=== PATIENT | female | born 1970 ===

== ENCOUNTER 2023-04-03 09:46 | Outpatient (CLI) | payer OTHER | END 2023-04-03 09:56 | disposition home or self-care (01) | LOC: RAD 09:46 | DX: M77.41 Metatarsalgia, right foot (principal); M77.42 Metatarsalgia, left foot; G57.63 Lesion of plantar nerve, bilateral lower limbs ==

== ENCOUNTER 2023-04-23 08:39 | Outpatient (CLI) | payer OTHER | END 2023-04-23 09:04 | disposition home or self-care (01) | LOC: MAMO-SONO 08:39 | PROVIDERS: ATTEND Obstetrics & Gynecology | DX: Z12.31 Encounter for screening mammogram for malignant neoplasm of breast (principal); N60.11 Diffuse cystic mastopathy of right breast; N60.12 Diffuse cystic mastopathy of left breast; M25.551 Pain in right hip ==

== ENCOUNTER 2023-06-07 10:57 | Outpatient (CLI) | payer OTHER ==
[2023-06-07 12:48] LABS: PHOSPHOKINASE CREATININE 60 U/L (26-192); T4 TOTAL 8.08 UG/DL (4.8-13.9)
[2023-06-07 12:49] LABS: C-REACTIVE PROTEIN < 0.29 MG/DL (0.00-0.29)
== END 2023-06-07 11:00 | disposition home or self-care (01) ==
LOC: LAB 10:57
DX: M35.9 Systemic involvement of connective tissue, unspecified (principal); M32.9 Systemic lupus erythematosus, unspecified; M45.9 Ankylosing spondylitis of unspecified sites in spine; R79.82 Elevated C-reactive protein (CRP); M06.9 Rheumatoid arthritis, unspecified; E06.3 Autoimmune thyroiditis; M35.00 Sjogren syndrome, unspecified; E55.9 Vitamin D deficiency, unspecified; E07.9 Disorder of thyroid, unspecified; M46.90 Unspecified inflammatory spondylopathy, site unspecified

== ENCOUNTER 2024-09-06 16:10 | Outpatient (CLI) | payer OTHER | END 2024-09-06 16:17 | disposition home or self-care (01) | LOC: RAD 16:10 | DX: M79.642 Pain in left hand (principal) ==

== ENCOUNTER 2024-09-15 14:38 | Outpatient (CLI) | payer OTHER | END 2024-09-15 14:46 | disposition home or self-care (01) | LOC: MAMO-SONO 14:38 | DX: N63 Unspecified lump in breast (principal) ==

== ENCOUNTER 2024-11-15 13:26 | Outpatient (CLI) | payer OTHER | END 2024-11-15 13:27 | disposition home or self-care (01) | LOC: NUCLEAR 13:26 | DX: M81.0 Age-related osteoporosis without current pathological fracture (principal) ==

== ENCOUNTER → 2024-12-06 07:45 | Outpatient (CLI) | payer OTHER ==
[2024-12-06 09:02] LABS: HEMATOCRIT 41.1 % (36.0-45.00); MEAN CELL VOLUME 93.3 fL (80.00-100.00); MEAN CORPUSCULAR HEMOGLOBIN 31.8 pg (27.00-32.0); MEAN CORPUSCULAR HGB CONC 34.1 g/dl (32.0-36.0); PLATELET COUNT 248 K/uL (150-450); RED BLOOD COUNT 4.41 M/uL (4.00-6.00); RED CELL DISTRIBUTION WIDTH 13.2 % (11.5-14.5)
[2024-12-06 09:18] LABS: PH,URINE 7.5 (5.0-8.0); URINE APPEARANCE Turbid; URINE BILIRRUBIN Negative (NEGATIVE); URINE BLOOD Negative; URINE COLOR Yellow; URINE GLUCOSE Negative (NEGATIVE); URINE KETONE Negative (NEGATIVE); URINE LEUKOCYTE Small; URINE NITRATE Negative; URINE PROTEIN Negative (NEGATIVE); URINE UROBILINOGEN 0.2 E.U./dl
[2024-12-06 09:22] LABS: URINE BACTERIA 20.8 uL (0.0-1933); URINE EPITHELIAL CELLS 6.4 uL (0.0-38.8); URINE RBC 42.2 uL (0.0-20.8); URINE WBC 42.5 uL (0.0-23.2)
[2024-12-06 09:25] LABS: URINE CAST 0.14 uL (0.0-1.40)
[2024-12-06 10:12] LABS: BILIRUBIN TOTAL 0.46 mg/dL (0.3-1.2); CALCIUM 9.2 mg/dL (8.5-10.1); CHOL HDL RATIO 3.7 (0-5.0); CREATININE SERUM 0.7 mg/dL (0.55-1.02); GFR 86.56; GLOBULINA 2.9 G/DL (2.4-3.5); POTASSIUM 3.82 mEq/L (3.5-5.1); T4 FREE 1.06 NG/ML (0.76-1.46); TOTAL PROTEIN 6.9 gm/dL (6.4-8.2); TSH 2.87 uIU/mL (0.358-3.74)
[2024-12-06 12:56] LABS: T3 TOTAL 1.37 ng/ml (0.846-2.02); VITAMIN D3 25 HYDROXY 35.05 ng/ml (30-120)
[2024-12-08 01:05] LABS: HSV I IGG TYPE SPECIFIC Reactive (Non Reactive); hav igm Negative (Negative); hcv Non Reactive (Non Reactive); hep b c Negative (Negative); hep b s ag Negative (Negative)
== END | disposition home or self-care (01) ==
LOC: LAB 07:45
DX: E11.9 Type 2 diabetes mellitus without complications (principal); Z00.00 Encounter for general adult medical examination without abnormal findings; E03.9 Hypothyroidism, unspecified; E78.00 Pure hypercholesterolemia, unspecified; N39.0 Urinary tract infection, site not specified; D64.9 Anemia, unspecified; R80.9 Proteinuria, unspecified; E55.9 Vitamin D deficiency, unspecified; R74.8 Abnormal levels of other serum enzymes; Z11.4 Encounter for screening for human immunodeficiency virus [HIV]

== ENCOUNTER 2025-01-19 10:45 | Outpatient (CLI) | payer OTHER | END 2025-01-19 10:49 | disposition home or self-care (01) | LOC: RAD 10:45 | DX: M25.512 Pain in left shoulder (principal) ==